=== PATIENT | male | born 1980 | race Caucasian/White ===

== ENCOUNTER 2019-04-14 19:48 | Emergency (ER) | payer SELFPAY ==
--- NOTE | 2019-04-14 20:19 | EDM.PDOC ---
ED HPI GENERAL MEDICAL PROBLEM - General Chief Complaint: General Stated Complaint: PT CHEST PAIN AND DIZZY Time Seen by Provider: 04/14/19 19:53 - History of Present Illness INITIAL COMMENTS - FREE TEXT/NARRATIVE: HISTORY AND PHYSICAL: History of present illness: Patient is a 38-year-old male with no history of cardiac or pulmonary disease but does smoke cigarettes and drink a lot of caffeinated products and presents with chest pain that occurred 6 days ago and woke him from sleep and occurred all morning but has not recurred since that time an irregular heartbeat and palpitations episodically since that time associated with lightheadedness. The patient says that since he had the episode of chest pain 6 days ago he has not had any chest pain fevers chills or shortness of breath. He has had these episodes of feeling like his heart is beating irregularly but it is not fast and it is more when he is at rest and not when he is doing activities. He is not dizzy but he says he gets lightheaded but does not pass out or blackout. He has no abdominal pain nausea vomiting or shortness of breath with these episodes and he does not get diaphoretic. The patient says that he has reduced his caffeine intake significantly and has been drinking more water and he has had normal p.o. intake as well as urine output. He has no other systemic complaint such as fever chills or upper respiratory symptoms no vomiting or diarrhea. The patient says that he is getting insurance as of the first of the year and he did not want to come in but his coworkers insisted that he get checked out. The patient's only significant family history is of a father who had a heart attack in his low 50s but who is also a diabetic and an alcoholic. The patient says he has never had chest pain or shortness of breath with activities and he has been working longer hours than usual over the last 1 week. He also says that he feels like he has a component of anxiety but he is never been diagnosed with same. Patient denies drug use or alcohol use. Please also note that when the patient gets the irregular heartbeat he does not always get lightheaded and sometimes he can get lightheaded without the irregular heartbeat or palpitations. Review of systems: As per history of present illness and below otherwise all systems reviewed and negative. Past medical history: As per history of present illness and as reviewed below otherwise noncontributory. Surgical history: As per history of present illness and as reviewed below otherwise noncontributory. Social history: No reported history of drug or alcohol abuse. Family history: As per history of present illness and as reviewed below otherwise noncontributory. Physical exam: General: Well-developed well-nourished thin man who is nontoxic and vital signs are noted by me. HEENT: Atraumatic, normocephalic, pupils reactive, negative for conjunctival pallor or scleral icterus, mucous membranes tacky, throat clear, neck supple, nontender, trachea midline. Lungs: Clear to auscultation, breath sounds equal bilaterally, chest nontender. Heart: S1S2, regular, negative for clicks, rubs, or JVD. Abdomen: Soft, nondistended, nontender. Negative for masses or hepatosplenomegaly. Negative for costovertebral tenderness. Pelvis: Stable nontender. Genitourinary: Deferred. Rectal: Deferred. Extremities: Atraumatic, negative for cords or calf pain. Neurovascular unremarkable. No pedal edema or leg asymmetry Neuro: Awake, alert, oriented. Cranial nerves II through XII unremarkable. Cerebellum unremarkable. Motor and sensory unremarkable throughout. Exam nonfocal. Diagnostics: eKG chest x-ray orthostatic vitals CBC CMP troponin TSH UA with reflex Therapeutics: The patient says to me specifically that he would only like to do the bare minimum of work-up as he does not have complete insurance coverage at this time and initially he said he only came in at his coworkers insistence and to make sure that he was going to be okay tomorrow. He does not have a local clinic provider and I discussed with him that we would do the work-up as above but we will refrain from placing IV at this time as he is taking fluids without difficulty. I will reassess him after his orthostatic vitals. 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 He states understanding He is aware of all testing results and need for follow-up and I will place him on the emergent follow-up list and have told him how to connect with our clinic. I have advised him on reasons to return to the ED. Impression: Episodic palpitations Definitive disposition and diagnosis as appropriate pending reevaluation and review of above. - Related Data Allergies Allergy/AdvReac Type Severity Reaction Status Date / Time No Known Allergies Allergy Verified 04/14/19 20:00 Home Meds: Home Meds . [No Known Home Meds] 04/14/19 [History] Past Medical History HEENT History: Reports: None Cardiovascular History: Reports: None Respiratory History: Reports: None Gastrointestinal History: Reports: None Genitourinary History: Reports: None Musculoskeletal History: Reports: None Neurological History: Reports: None Psychiatric History: Reports: None Endocrine/Metabolic History: Reports: None Insulin Pump Model and Lineworker: None Hematologic History: Reports: None Immunologic History: Reports: None Oncologic (Cancer) History: Reports: None Dermatologic History: Reports: None - Infectious Disease History Infectious Disease History: Reports: None - Past Surgical History Head Surgeries/Procedures: Reports: None Social & Family History - Family History Family Medical History: Noncontributory - Tobacco Use Smoking Status *Q: Current Every Day Smoker Years of Tobacco use: 20 Packs/Tins Daily: 1 - Caffeine Use Caffeine Use: Reports: Coffee, Energy Drinks - Recreational Drug Use Recreational Drug Use: No ED ROS GENERAL - Review of Systems Review Of Systems: Comprehensive ROS is negative, except as noted in HPI. ED EXAM, GENERAL - Physical Exam Exam: See Below (SEE Dictation) Course - Vital Signs Last Recorded V/S: Last Vital Signs Temp 36 C 04/14/19 20:00 Pulse 82 04/14/19 20:00 Resp 18 04/14/19 20:00 BP 129/93 H 04/14/19 20:00 Pulse Ox 98 04/14/19 20:00 Orthostatic Blood Pressure [ 118/80 Standing] Orthostatic Blood Pressure [ 118/77 Sitting] Orthostatic Blood Pressure [ 115/78 Supine] - Orders/Labs/Meds Orders: Active Orders 24 hr Category Date Time Status Cardiac Monitoring [RC] . DIRECTED Care 04/14/19 20:13 Active EKG Documentation Completion [RC] STAT Care 04/14/19 19:55 Active Orthostatic Vital Signs [RC] ASDIRECTED Care 04/14/19 20:13 Active Labs: Laboratory Tests 04/14/19 04/14/19 04/14/19 Range/Units 20:15 20:30 20:30 WBC 8.51 (4.0-11.0) K/uL RBC 4.81 (4.50-5.90) M/uL Hgb 15.4 (13.0-17.0) g/dL Hct 45.5 (38.0-50.0) % MCV 94.6 (80.0-98.0) fL MCH 32.0 (27.0-32.0) pg MCHC 33.8 (31.0-37.0) g/dL RDW Std Deviation 48.6 (28.0-62.0) fl RDW Coeff of Jamin 14 (11.0-15.0) % Plt Count 257 (150-400) K/uL MPV 10.00 (7.40-12.00) fL Neut % (Auto) 56.2 (48.0-80.0) % Lymph % (Auto) 34.2 (16.0-40.0) % Sharp % (Auto) 7.4 (0.0-15.0) % Eos % (Auto) 2.0 (0.0-7.0) % Baso % (Auto) 0.2 (0.0-1.5) % Neut # (Auto) 4.8 (1.4-5.7) K/uL Lymph # (Auto) 2.9 H (0.6-2.4) K/uL Sharp # (Auto) 0.6 (0.0-0.8) K/uL Eos # (Auto) 0.2 (0.0-0.7) K/uL Baso # (Auto) 0.0 (0.0-0.1) K/uL Nucleated RBC % 0.0 /100WBC Nucleated RBCs # 0 K/uL Sodium 137 (136-148) mmol/L Potassium 3.7 (3.5-5.1) mmol/L Chloride 101 (98-107) mmol/L Carbon Dioxide 27.4 (21.0-32.0) mmol/L BUN 13 (7.0-18.0) mg/dL Creatinine 1.0 (0.8-1.3) mg/dL Est Cr Clr Drug Dosing 116.80 mL/min Estimated GFR (MDRD) > 60.0 ml/min Glucose 83 (74-106) mg/dL Calcium 9.0 (8.5-10.1) mg/dL Total Bilirubin 0.3 (0.2-1.0) mg/dL AST 19 (15-37) IU/L ALT 36 (14-63) IU/L Alkaline Phosphatase 56 (46-116) U/L Troponin I < 0.050 (0.000-0.056) ng/mL Total Protein 7.7 (6.4-8.2) g/dL Albumin 4.3 (3.4-5.0) g/dL Globulin 3.4 (2.6-4.0) g/dL Albumin/Globulin Ratio 1.3 (0.9-1.6) TSH 3rd Generation 2.59 (0.36-3.74) uIU/mL Urine Color YELLOW Urine Appearance CLEAR Urine pH 6.5 (5.0-8.0) Ur Specific Cranberry <= 1.005 (1.001-1.035) Urine Protein NEGATIVE (NEGATIVE) mg/dL Urine Glucose (UA) NEGATIVE (NEGATIVE) mg/dL Urine Ketones NEGATIVE (NEGATIVE) mg/dL Urine Occult Blood NEGATIVE (NEGATIVE) Urine Nitrite NEGATIVE (NEGATIVE) Urine Bilirubin NEGATIVE (NEGATIVE) Urine Urobilinogen 0.2 (<2.0) EU/dL Ur Leukocyte Esterase NEGATIVE (NEGATIVE) Departure - Departure Time of Disposition: 21:16 Disposition: Home, Self-Care 01 Condition: Good Clinical Impression: Palpitations - Discharge Information Referrals: PCP,None [Primary Care Provider] - Forms: ED Department Discharge Additional Instructions: The following information is given to patients seen in the emergency department who are being discharged to home. This information is to outline your options for follow-up care. We provide all patients seen in our emergency department with a follow-up referral. The need for follow-up, as well as the timing and circumstances, are variable depending upon the specifics of your emergency department visit. If you don't have a primary care physician on staff, we will provide you with a referral. We always advise you to contact your personal physician following an emergency department visit to inform them of the circumstance of the visit and for follow-up with them and/or the need for any referrals to a consulting specialist. The emergency department will also refer you to a specialist when appropriate. This referral assures that you have the opportunity for followup care with a specialist. All of these measure are taken in an effort to provide you with optimal care, which includes your followup. Under all circumstances we always encourage you to contact your private physician who remains a resource for coordinating your care. When calling for followup care, please make the office aware that this follow-up is from your recent emergency room visit. If for any reason you are refused follow-up, please contact the [facility] emergency department at and ask to speak to the emergency department charge nurse. [facility] Primary care- Internal Medicine and Family [address] [address] Push Hydration and try to reduce and/or eliminate tobacco use and continue to reduce and/or eliminate caffeine use. Call the clinic in the morning and schedule a follow-up appointment so that you can get that heart monitor as we discussed. Return to ER as needed and as discussed Sepsis Event Note - Evaluation Sepsis Screening Result: No Definite Risk - Focused Exam Vital Signs: Vital Signs Temp Pulse Resp BP Pulse Ox 04/14/19 20:00 36 C 82 18 129/93 H 98 Date Exam was Performed: 04/14/19 Time Exam was Performed: 21:14 - My Orders Last 24 Hours: My Active Orders 04/14/19 19:55 EKG Documentation Completion [RC] STAT 04/14/19 20:13 Cardiac Monitoring [RC] . DIRECTED Orthostatic Vital Signs [RC] ASDIRECTED - Assessment/Plan Last 24 Hours: My Active Orders 04/14/19 19:55 EKG Documentation Completion [RC] STAT 04/14/19 20:13 Cardiac Monitoring [RC] . DIRECTED Orthostatic Vital Signs [RC] ASDIRECTED
--- NOTE | 2019-04-14 21:02 | CR ---
Indication: Chest pain. SOB Technique: AP portable views of the chest. Comparison: None Findings: The heart is normal in size. The lungs are clear. No infiltrate, pleural effusion, or pneumothorax is identified. Impression: No acute cardiopulmonary process. Dictated by Fernanda Gatica MD @ Apr 14 2019 8:54PM Signed by Dr. Fernanda Gatica @ Apr 14 2019 9:01PM
[2019-04-14 21:09] LABS: BLOOD UREA NITROGEN,BUN 13 mg/dL (7.0-18.0); CARBON DIOXIDE,CO2 27.4 mmol/L (21.0-32.0); CHLORIDE,CL 101 mmol/L (98-107); GLUCOSE RANDOM 83 mg/dL (74-106); POTASSIUM,K 3.7 mmol/L (3.5-5.1); SODIUM,NA 137 mmol/L (136-148)
== END 2019-04-14 21:45 | disposition home or self-care (01) ==
LOC: MW.ED 19:48
DX: R00.2 Palpitations (principal); F17.210 Nicotine dependence, cigarettes, uncomplicated
CPT/HCPCS: 36415; 71045; 71045-26; 80053; 81003; 84443; 84484; 85025; 93005; 99285-25